=== PATIENT | male | born 1980 | race African-American/Black ===

== ENCOUNTER 2025-05-22 06:09 | Emergency (ER) | payer BC ==
[~2025-05-22] VITALS: Ht 165.1 cm; Wt 77.1 kg
[2025-05-22] MEDS ORDERED: LISI20TA30 PO (06:29)
[2025-05-22] MEDS ORDERED: BUPR150T5 PO (06:29)
[2025-05-22 07:06] LABS: PLATELET COUNT (AUTO) 201 K/uL (152-348); RED BLOOD CELL COUNT(AUTO) 4.33 MIL/uL (4.06-5.63); RED CELL DISTRIBUTION WIDTH 13.6 % (12.1-16.2); WHITE BLOOD COUNT (AUTO) 8.6 K/uL (3.6-10.2)
[2025-05-22 07:15] LABS: CREATININE 0.8 mg/dL (0.6-1.3); SODIUM SERUM 139.0 mmol/L (136-145); UREA NITROGEN, BLOOD 13.0 mg/dL (7-18)
[2025-05-22 07:20] VITALS: BP 129/77
[2025-05-22 07:21] LABS: ASPARTATE AMINOTRANSFERASE 37.0 U/L (15-37); TOTAL PROTEIN, SERUM 7.5 g/dL (6.4-8.2)
[2025-05-22 08:24] VITALS: BP 127/75; O2SAT 99
== END 2025-05-22 08:41 | disposition home or self-care (01) ==
LOC: ER 06:14
DX: R00.2 Palpitations (principal); R42 Dizziness and giddiness; R06.02 Shortness of breath; E11.9 Type 2 diabetes mellitus without complications; F12.90 Cannabis use, unspecified, uncomplicated; F32.A Depression, unspecified; I10 Essential (primary) hypertension; Z79.899 Other long term (current) drug therapy; Z88.0 Allergy status to penicillin
CPT/HCPCS: 36415; 71045; 84484; 85025; A4606; A4663